=== PATIENT | male | born 1955 | race Asian ===

== ENCOUNTER 2021-02-10 09:56 | Inpatient (IN) | payer MEDICARE ==
[2021-02-10 10:50] LABS: Hemoglobin 9.2 g/dL (13.5-17.5); Mean Corpuscular HGB CONC 33.1 g/dL (32.0-36.0); Mean Corpuscular Hemoglobin 30.3 pg (27.0-33.0); Mean Corpuscular Volume 91.4 fl (81.2-95.1); Mean Platelet Volume 9.1 fl (7.4-10.4); Platelet Count 276 10x3/uL (150-450); RBC Distribution Width 15.7 % (11.5-14.5); Red Blood Cell (RBC) Count 3.04 10x6/uL (4.32-5.72); White Blood Cell (WBC) Count 26.1 10x3/uL (3.5-10.5)
[2021-02-10 10:52] LABS: MDiff Complete? YES
[2021-02-10 11:05] LABS: ALT (SGPT) 26 U/L (8-55); AST (SGOT) 18 U/L (5-34); Albumin 3.3 g/dL (3.4-4.8); Alkaline Phosphatase 90 U/L (40-110); Anion Gap 12 mmol/L (10-20); BUN (Urea Nitrogen) 24 mg/dL (8.4-25.7); Bilirubin, Total 0.3 mg/dL (0.2-1.2); Calc. Creatinine Clearance 0 mL/min (70-130); Calcium 8.6 mg/dL (7.8-10.44); Carbon Dioxide 22 mmol/L (23-31); Chloride 103 mmol/L (98-107); Globulin 3.1 g/dL (2.4-3.5); Glucose 150 mg/dL (80-115); Potassium 4.9 mmol/L (3.5-5.1); Protein, Total 6.4 g/dL (5.8-8.1); Sodium 132 mmol/L (136-145)
[2021-02-10 11:08] LABS: Band 5 % (5-11); Lymphocytes 9 % (21-51); Metamyelocyte 1 % (0-0); Monocytes 8 % (0-10); Myelocyte 1 % (0-0); Neutrophil 76 % (42-75)
[2021-02-10 11:10] LABS: Platelet Morphology Comment Appears Adequate
[2021-02-10 11:11] LABS: RBC Morphology Normal
[2021-02-10] MEDS ORDERED: Cefepime 2 GM VIAL ONE (11:39)
[2021-02-10] MEDS ORDERED: HYDROcodone/Acetaminophen 5/325 mg Tablet PO PRN (15:56)
[2021-02-10] MEDS ORDERED: Acetaminophen 325 MG TAB PO PRN (15:56)
[2021-02-10] MEDS ORDERED: Ondansetron PF 4 MG/2 ML Vial IVP PRN (15:56)
[2021-02-10] MEDS ORDERED: Senokot S 8.6-50 MG TAB PO PRN (15:56)
[2021-02-10] MEDS ORDERED: Guaifenesin DM 100-10/5 ML UDCUP PO PRN (15:56)
[2021-02-10] MEDS ORDERED: Bisacodyl 5 MG TAB PO PRN (15:56)
[2021-02-10] MEDS ORDERED: hydrALAZINE 20 MG/ML VIAL SLOW IVP PRN (16:08)
[2021-02-10] MEDS: Carvedilol 6.25 MG TAB PO SCH (18:12)
[2021-02-10 18:23] VITALS: BMI 18.3
[2021-02-10] MEDS ORDERED: Dextrose 50% Abboject 50 ML SYRINGE SLOW IVP PRN (19:10)
[2021-02-10] MEDS ORDERED: HumaLOG 300 UNITS/3 ML VIAL SC PRN (19:10)
[2021-02-10] MEDS ORDERED: Dextrose 5% in Water 1,000 ML IV PRN (19:10)
[2021-02-10] MEDS ORDERED: metFORMIN 500 MG TAB PO SCH (21:00)
[2021-02-10] MEDS: Gabapentin 300 MG CAP PO SCH (22:51)
[2021-02-10] MEDS: Tamsulosin HCl 0.4 MG CAP PO SCH (22:51)
[2021-02-10] MEDS: Atorvastatin Calcium 20 MG TAB PO SCH (22:55)
[2021-02-11 05:21] LABS: #Basophils 0.1 10x3/uL (0.0-0.2); #Eosinphils 0.4 10x3/uL (0.0-0.5); #Monocytes 2.2 10x3/uL (0.0-1.1); #Neutrophils 18.4 10x3/uL (1.5-8.4); %Basophils 0.4 % (0.0-2.0); %Eosinophils 1.6 % (0.0-6.0); %Lymphocytes 8.2 % (18.0-47.0); %Monocytes 9.7 % (0.0-10.0); %Neutrophils 79.2 % (40.0-75.0); Mean Corpuscular HGB CONC 32.7 g/dL (32.0-36.0); Mean Corpuscular Hemoglobin 30.5 pg (27.0-33.0); Mean Corpuscular Volume 93.2 fl (81.2-95.1); Platelet Count 265 10x3/uL (150-450); RBC Distribution Width 15.7 % (11.5-14.5); Red Blood Cell (RBC) Count 2.95 10x6/uL (4.32-5.72); White Blood Cell (WBC) Count 23.2 10x3/uL (3.5-10.5)
[2021-02-11 05:25] LABS: Anion Gap 10 mmol/L (10-20); BUN (Urea Nitrogen) 18 mg/dL (8.4-25.7); Calc. Creatinine Clearance 31 mL/min (70-130); Calcium 8.6 mg/dL (7.8-10.44); Carbon Dioxide 22 mmol/L (23-31); Chloride 106 mmol/L (98-107); Glucose 110 mg/dL (80-115); Potassium 4.3 mmol/L (3.5-5.1); Sodium 134 mmol/L (136-145)
[2021-02-11 05:43] LABS: INR-International Normal Ratio 1.1; Prothrombin Time 11.5 sec (9.5-12.1)
[2021-02-11] MEDS: Loratadine 10 MG TAB PO SCH (10:27)
[2021-02-11] MEDS: Amlodipine 10 MG TAB PO SCH (10:27)
[2021-02-11] MEDS: Clopidogrel Bisulfate 75 MG TAB PO SCH (10:27)
[2021-02-11] MEDS: Bupropion 150 MG XL TAB PO SCH (10:27)
[2021-02-11] MEDS: Pantoprazole 40 MG GRANULES PACKET PO SCH (10:27)
[2021-02-11] MEDS: Carvedilol 6.25 MG TAB PO SCH ×2 (10:30→17:19)
[2021-02-11] MEDS: Cefepime 2 GM in Sodium Chloride 0.9% 100 ML IVPB SCH (13:40)
[2021-02-11 14:19] LABS: SARS-CoV-2 PCR by NAA Not Detected (NotDetected)
[2021-02-11] MEDS: Vancomycin HCl 500 MG in Sodium Chloride 0.9% 100 ML IVPB SCH (15:34)
[2021-02-11] MEDS: Atorvastatin Calcium 20 MG TAB PO SCH (21:08)
[2021-02-11] MEDS: Tamsulosin HCl 0.4 MG CAP PO SCH (21:09)
[2021-02-11] MEDS: Gabapentin 300 MG CAP PO SCH (21:09)
[2021-02-12 06:13] LABS: #Eosinphils 0.3 10x3/uL (0.0-0.5); #Monocytes 1.5 10x3/uL (0.0-1.1); #Neutrophils 10.3 10x3/uL (1.5-8.4); %Basophils 0.3 % (0.0-2.0); %Eosinophils 2.4 % (0.0-6.0); %Lymphocytes 10.3 % (18.0-47.0); %Monocytes 10.7 % (0.0-10.0); %Neutrophils 75.2 % (40.0-75.0); Hemoglobin 9.1 g/dL (13.5-17.5); Mean Corpuscular HGB CONC 33.6 g/dL (32.0-36.0); Mean Corpuscular Hemoglobin 31.1 pg (27.0-33.0); Mean Corpuscular Volume 92.5 fl (81.2-95.1); Mean Platelet Volume 8.8 fl (7.4-10.4); Platelet Count 278 10x3/uL (150-450); RBC Distribution Width 15.3 % (11.5-14.5); Red Blood Cell (RBC) Count 2.93 10x6/uL (4.32-5.72); White Blood Cell (WBC) Count 13.7 10x3/uL (3.5-10.5)
[2021-02-12 06:39] LABS: Anion Gap 12 mmol/L (10-20); BUN (Urea Nitrogen) 17 mg/dL (8.4-25.7); Calc. Creatinine Clearance 30 mL/min (70-130); Calcium 8.6 mg/dL (7.8-10.44); Carbon Dioxide 22 mmol/L (23-31); Chloride 109 mmol/L (98-107); Glucose 137 mg/dL (80-115); Potassium 4.8 mmol/L (3.5-5.1); Sodium 138 mmol/L (136-145)
[2021-02-12] MEDS: Carvedilol 6.25 MG TAB PO SCH ×2 (08:33→18:21)
[2021-02-12] MEDS: Loratadine 10 MG TAB PO SCH (08:34)
[2021-02-12] MEDS: Clopidogrel Bisulfate 75 MG TAB PO SCH (08:34)
[2021-02-12] MEDS: Bupropion 150 MG XL TAB PO SCH (08:34)
[2021-02-12] MEDS: Amlodipine 10 MG TAB PO SCH (08:34)
[2021-02-12] MEDS: Pantoprazole 40 MG GRANULES PACKET PO SCH (08:34)
[2021-02-12 11:11] LABS: Vancomycin, Trough 8.5 ug/mL
[2021-02-12] MEDS: Cefepime 2 GM in Sodium Chloride 0.9% 100 ML IVPB SCH (12:48)
[2021-02-12] MEDS: Vancomycin HCl 750 MG in Sodium Chloride 0.9% 250 ML 250 ML IVPB SCH (14:14)
[2021-02-12] MEDS: Vancomycin HCl 500 MG in Sodium Chloride 0.9% 100 ML IVPB SCH (14:45)
[2021-02-12] MEDS: Gabapentin 300 MG CAP PO SCH (20:48)
[2021-02-12] MEDS: Atorvastatin Calcium 20 MG TAB PO SCH (20:48)
[2021-02-12] MEDS: Tamsulosin HCl 0.4 MG CAP PO SCH (21:00)
[2021-02-13] MEDS: Carvedilol 6.25 MG TAB PO SCH (08:11)
[2021-02-13] MEDS: Bupropion 150 MG XL TAB PO SCH (08:11)
[2021-02-13] MEDS: Clopidogrel Bisulfate 75 MG TAB PO SCH (08:11)
[2021-02-13] MEDS: Pantoprazole 40 MG GRANULES PACKET PO SCH (08:11)
[2021-02-13] MEDS: Amlodipine 10 MG TAB PO SCH (08:11)
[2021-02-13] MEDS: Loratadine 10 MG TAB PO SCH (08:11)
[2021-02-13] MEDS: Cefepime 2 GM in Sodium Chloride 0.9% 100 ML IVPB SCH (13:06)
[2021-02-13] MEDS: Vancomycin HCl 750 MG in Sodium Chloride 0.9% 250 ML 250 ML IVPB SCH (14:47)
[2021-02-13 16:17] VITALS: BP 141/60; TEMP 97.9
== END 2021-02-13 16:36 | disposition short-term general hospital (02) | DRG 862 ==
LOC: CSHERS 09:56 → CSHTELE 14:33
PROVIDERS: ADMIT Internal Medicine; ATTEND Family Medicine
DX: T81.41XA Infection following a procedure, superficial incisional surgical site, initial encounter (principal); A41.9 Sepsis, unspecified organism; L02.416 Cutaneous abscess of left lower limb; N17.9 Acute kidney failure, unspecified; T81.44XA Sepsis following a procedure, initial encounter; E11.51 Type 2 diabetes mellitus with diabetic peripheral angiopathy without gangrene; E11.42 Type 2 diabetes mellitus with diabetic polyneuropathy; Z20.822 Contact with and (suspected) exposure to COVID-19; I25.10 Atherosclerotic heart disease of native coronary artery without angina pectoris; K21.9 Gastro-esophageal reflux disease without esophagitis; E55.9 Vitamin D deficiency, unspecified; N40.0 Benign prostatic hyperplasia without lower urinary tract symptoms; I10 Essential (primary) hypertension; D63.8 Anemia in other chronic diseases classified elsewhere; Z79.01 Long term (current) use of anticoagulants; Z95.820 Peripheral vascular angioplasty status with implants and grafts; Z79.84 Long term (current) use of oral hypoglycemic drugs; Z87.891 Personal history of nicotine dependence; Z95.1 Presence of aortocoronary bypass graft; Z79.82 Long term (current) use of aspirin; Z79.899 Other long term (current) drug therapy; E87.6 Hypokalemia; E11.65 Type 2 diabetes mellitus with hyperglycemia
CPT/HCPCS: 36415; 36416; 80048; 80053; 80202; 82565; 83036; 83605; 84145; 84520; 85025; 85610; 86140; 87040; 87635; 96365; 96367; J0692; J3370; J3490; J7050; U0003; U0005